=== PATIENT | female | born 1955 | race Caucasian/White ===

== ENCOUNTER 2017-04-14 06:40 | Day surgery (SDC) | payer OTHER ==
[~2017-04-14] VITALS: Ht 162.6 cm; Wt 61.2 kg
[~2017-04-14 06:40] MED LIST: BUPROPION XL150 MG PO; CIPROFLOXACIN500 MG PO; DIAZEPAM5 MG PO; GERITOL COMPLE1 EACH PO; LORAZEPAM1 MG PO; LORAZEPAM2 MG PO; METRONIDAZOLE250 MG PO; WELLBUTRIN SR150 MG PO
[2017-04-14] MEDS ORDERED: NEOMYCIN SULFA500 MG PO (06:54)
--- NOTE | 2017-04-14 08:36 | NUR ---
PT SEEMS TO BE RESTING COMFORTABLY IN BED, POLITE, SHORT ANSWERS. CAREGIVER BY PT'S SIDE. BOTH SEEMED TO BE INFORMED, DENIED ANY NEED. DECLINED PRAYER-"HER DAD HAS GIVEN HER A BLESSING ALREADY".
--- NOTE | 2017-04-14 09:47 | NUR ---
PT ALERT, ORIENTED AND VERY FRUSTRATED. SHE DISCOVERED IN HER WORDS THAT SHE WILL HAVE ANOTHER PROCEDURE TO REMOVE POLYUPS FOLLOWING THE REMOVAL OF THE TUMOR TODAY. WHAT SEMED TO FRUSTRATE HER WAS THE FINANCIAL LOSS SHE WOULD INCURR FROM LOST WORK TIME. SHE NEEDED TO VENT, I LET HER. RIGHT AFTER SHE STATED THAT SHE "JUST NEEDED TO LET IT GO". PT REQUESTED PRAYER, AND WE BOTH AGREED WE NEEDED HER HEALTHY. WILL FOLLOW NEEDED
--- NOTE | 2017-04-14 10:53 | NUR ---
has been up to br x2. concerned with wait. has been updated on delay...surgery ahead of her taking longer than expected. gave her glycerin swab for mouth and gave preop meds. she called to inform him of delay. settled in watching [employer] movies and is ok with wait.
--- NOTE | 2017-04-14 12:11 | NUR ---
UP TO BR PRIOR TO OR.
--- NOTE | 2017-04-14 13:30 | NUR ---
04/14/17 1330 Aydee Major 1325-PATIENT ARRIVED TO PACU ON 6L MASK O2 SAT 100% PATIENT REACTIVE OPENS EYES. GEL FOAM TO RECTUM. PATIENT DROWSY FALLS BACK ASLEEP. SR.
[2017-04-14] MEDS ORDERED: HYDROCODON-ACE1 EA10 PO (13:44)
[2017-04-14] MEDS ORDERED: IBUPROFEN600 MG PO (13:44)
[2017-04-14] MEDS ORDERED: MAPAP325 MG PO (13:44)
--- NOTE | 2017-04-14 14:56 | NUR ---
1444 tompkins cath removed. pt adamant she needs to void. unable to. amb well. denies dizzines,nausea or pain.
--- NOTE | 2017-04-14 15:21 | NUR ---
amb to br voids 30ml instructed she will have to vois more to go home.
--- NOTE | 2017-04-20 01:42 | OR ---
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 PROCEDURE: Exam under anesthesia. Transanal excision of villous tumor of rectum. Rigid proctoscopy. SURGEON: Himanshu Duenas MD. ANESTHESIA: General endotracheal ( Marcell Hernandez CRNA) POSITION: On bed, prone janet-knife. INDICATION: This 61-year-old white woman is a patient of Dr. Burrell. She was noted to have diarrhea and rectal bleeding. She underwent colonoscopy by me on March 18, 2017. She is found to have relatively large sessile polyps throughout the colon. Three of which were exci sed with mucosal lift technique. A very large villous adenoma appearing lesion was noted in the rectum, which was completely unable to be excised by endoscopic technique. She did suffer a post polypectomy syndrome within 24 hours of polypectomy and polyp in the left upper abdomen (splenic flexure) which was managed conservatively with antibiotics and dietary changes. The CT scan at that time showed edema in the area but no free air, particularly throughout the abdomen. She has recovered fully from that. A pelvic CT scan was performed to better characterize lesion of the rectum. It appears to be confined to the mucosa and is in a left lateral and anterior aspect of the rectum itself. She is admitted at this time to undergo transanal excision of a large r ectal villous tumor. Understand the risks of bleeding, infection, need for additional treatment and other unforeseen complications related to its excision. Understand that she wished to proceed. FINDINGS: In the prone janet-knife position was optimal to allo w for excision. The base of the polyp was approximately 3 to 4 cm. The fluffy soft villous portion of the neoplasm was about 6 cm in diameter. Excision was undertaken without extending the incision to the Electronically Signed By: HIMANSHU DUENAS MD 04/20/17 0142 PATIENT NAME: MITZY BARILLAS OPERATIVE REPORT DATE OF : 53 PHYSICIAN: HIMANSHU DUENAS MD REPORT #: [id number] REPORT IS CONFIDENTIAL AND NOT TO BE RELEASED WITHOUT AUTHORIZATION [facility] [address], [place] [address] Signed perirectal fat per se, given the nature of the les ion itself. Closure was accomplished without problem. DESCRIPTION OF PROCEDURE: The patient was brought to the operating room, given a general endotracheal anesthetic. She was placed in a prone janet-knife position after Paul catheter was placed. The buttock s were taped apart. A prone janet-knife position was maintained. The perianal area was clipped and prepared with Betadine solution. Rigid proctoscopy was undertaken first. Proctoscopy was taken to approximately 16 cm on the rigid proctoscope. Aspiration of liquid stool type material was undertaken. The villous lesion itself was located in the left anterior aspect of the rectum, was very friable and easily made to bleed as would be expected. Once rigid proctoscopy and cleansing of the rectum and rectosigmoid was accomplished, digital examination was undertaken demonstrating the central portion of the lesion to be approximately 9 cm from the anal verge. An anal retractor was placed which allowed b gladys characterization of the lesion. Using a Butts clamps, the bulk of the adenoma was grasped and gently brought externally where it was nearly able to be withdrawn from the anal canal with good relaxation by Anesthesia. The mucosa cephalad to the b ase of the lesion was secured with a 3-0 silk suture. Sequential application of 3-0 silk suture around the base of the lesion a cm from its edge was undertaken. This included anteriorly. Once these areas were fully secured, electrocautery was used to exci se the villous tumor certainly full-thickness to the mucosa but not penetrating into the rectal fat proper. This was excised completely with special care taken anteriorly so as to avoid entry into the posterior vaginal canal. Once excised fully, photograp hs were taken of the lesion. Irrigation was undertaken and the mucosal defect was reapproximated with interrupted 3-0 silk sutures. This was relatively long and laborious given the usual issues related to rectal mucosal redundancy that was accomplished fu y. Once completed further examination and irrigation of the rectum showed mucosal defect to be well-approximated. A Gel-Foam was rolled and bacitracin applied to it and it was insinuated into the low rectum. The patient was returned to the supine position, ultimately extubated and transported to recovery in good condition having suffered no known complications. BLOOD LOSS: Relatively minimal. Electronically Signed By: HIMANSHU DUENAS MD 04/20/17 0142 PATIENT NAME: MITZY BARILLAS OPERATIVE REPORT DATE OF : 53 PHYSICIAN: HIMANSHU DUENAS MD REPORT #: [id number] REPORT IS CONFIDENTIAL AND NOT TO BE RELEASED WITHOUT AUTHORIZATION [address] [address] Signed MD SO Evans/Modl /[id number] cc: Isaias Burrell MD Electronically Signed By: HIMANSHU DUENAS MD 04/20/17 0142 PATIENT NAME: MITZY BARILLAS OPERATIVE REPORT DATE OF : 53 PHYSICIAN: HIMANSHU DUENAS MD REPORT #: [id number] REPORT IS CONFIDENTIAL AND NOT TO BE RELEASED WITHOUT AUTHORIZATION
== END 2017-04-14 16:40 | disposition home or self-care (01) ==
LOC: DS 06:40
PROVIDERS: Surgery
PROC: 0DJD8ZZ Inspection of Lower Intestinal Tract, Via Natural or Artificial Opening Endoscopic (ICD-10-PCS; principal; 2017-04-14 09:15)
PROC: 0DBP0ZZ Excision of Rectum, Open Approach (ICD-10-PCS; principal; 2017-04-14 09:15)
DX: D12.8 Benign neoplasm of rectum (principal); K57.30 Diverticulosis of large intestine without perforation or abscess without bleeding; Z90.89 Acquired absence of other organs; Z98.890 Other specified postprocedural states; Z87.891 Personal history of nicotine dependence
CPT/HCPCS: 00902; J0330; J0694; J1644; J2250; J2405; J2704; J3010; J7120

== ENCOUNTER 2018-10-06 10:43 | Day surgery (SDC) | payer BC, OTHER ==
[~2018-10-06] VITALS: Ht 162.6 cm; Wt 64.0 kg
[~2018-10-06 10:43] MED LIST changes: +HYDROCODON-ACE1 EA10 PO; +IBUPROFEN600 MG PO; +MAPAP325 MG PO; +NEOMYCIN SULFA500 MG PO
[2018-10-06] MEDS ORDERED: FLUOXETINE HCL10 MG PO (11:06)
--- NOTE | 2018-10-06 14:40 | NUR ---
10/06/18 1440 Meka King 1423- PT ARRIVES TO PACU FROM ENDO ROOM ON 2 L O2 VIA NC OXYGEN SATS 99%. PT REACTIVE TO VERBAL STIMULUS AND FOLLOWS COMMANDS APPROPRIATELY. 1425- PT TITRATED TO RA. SATS >90%. PT ENC TO PASS GAS AND IS ABLE TO DO SO. PT DENIES PAIN/NAUSEA. 1430- PT SITTING UP IN BED TALKING TO RN. PT DENIES DIZZINESS/NAUSEA. RA [id number]%. 1435- PT'S AT BEDSIDE. PT SITTING UP IN BED WITH RA SATS 100%. PT GETTING DRESSED. PT SIPS WATER AND TOLERATES.
--- NOTE | 2018-10-06 23:14 | OR ---
[facility] [address] [place], [place] [address] Signed DATE OF OPERATION: 10/06/2018 SURGEON: Himanshu Duenas MD PREOPERATIVE DIAGNOSIS: History of large dysplastic rectal polyp, status post transanal excision in 2017. POSTOPERATIVE DIAGNOSES: 1. Two new flat polyps (cecal area and distal ascending colon). 2. Sigmoid diverticulosis. 3. No evidence of recurrent rectal neoplasm. PROCEDURE: 1. Total colonoscopy to cecum. 2. Mucosal lift technique with Endomark tattoo and hot snare polypectomy (x2). ANESTHESIA: Intravenous sedation, fentanyl 125 mcg, Versed 9 mg. INDICATION: This is a 62-year-old white woman, who is a patient of Dr. Burrell, underwent colonoscopy and subsequently transanal excision of a dysplastic rectal polyp in 2017 by me. She is here for surveillance colonoscopy. She understands the risks of bleeding, infection, and perforation, and wished to proceed. FINDINGS: The prep was excellent. Complete colonoscopy was undertaken to the cecum. There was a flat sessile polyp, very subtle in its appearance, clearly troublesome based on narrow band imaging in the proximal ascending colon just distal to the cecum. Additionally, a similar such polyp was noted in the distal ascending colon. Both were excised with mucosal lift technique using Endo Marcell tattoo dye and hot snare polypectomy. The sigmoid had diverticulosis. The area of scar from the rectum appeared to be completely healed. DESCRIPTION OF PROCEDURE: The patient was brought to the endoscopy suite and placed in lateral decubitus position, given intravenous sedation to the point of slurred speech and nystagmus. Digital rectal examination was normal. An Olympus video colonoscope was passed in the rectum and manipulated throughout the Electronically Signed By: HIMANSHU DUENAS MD 10/06/18 2314 PATIENT NAME: MITZY BARILLAS OPERATIVE REPORT DATE OF : 53 REPORT #: [id number] PHYSICIAN: HIMANSHU DUENAS MD PCP: RYAN BURRELL MD REPORT IS CONFIDENTIAL AND NOT TO BE RELEASED WITHOUT AUTHORIZATION [facility] [address] [place], [place] [address] Signed colon. Diverticulosis was noted in the sigmoid. The scope was ultimately passed to the cecum itself. The ileocecal valve and appendiceal orifice were normal. The scope was withdrawn and in the proximal ascending colon (distal cecum) was a subtle flat polyp. Narrow band imaging confirmed it clearly being worrisome type lesion. The lesion was excised completely with mucosal lift technique using spot tattoo needle technique for mucosal lift and hot snare polypectomy. Additional morcellation polypectomy and limited amount of additional electrocautery were used for hemostasis. The specimen was passed for pathology. Scope was withdrawn from that point and the hepatic flexure of the distal ascending colon was a similar such polyp excised in the exact same way. Further withdrawal of scope showed no other polyps, but did show diverticulosis of the left colon and sigmoid. Retroflexed view was normal. The area of prior excision in the rectum was clearly visualized and scarred down, but with no sign of recurrence. The scope was removed. The patient was taken to recovery room in good condition. CONCLUDING DIAGNOSES: 1. Flat polyps x2. Both excised completely. 2. Diverticulosis. PLAN: Recommend repeat colonoscopy in 1 year based on current findings, sooner if symptoms should develop. She will return to the ongoing care of Dr. raul Burrell. MD SO Evans/MODL /[id number] cc: Dr. Burrell Copies: ~ Electronically Signed By: HIMANSHU DUENAS MD 10/06/18 2314 PATIENT NAME: MITZY BARILLAS OPERATIVE REPORT DATE OF : 53 REPORT #: [id number] PHYSICIAN: HIMANSHU DUENAS MD PCP: RYAN BURRELL MD REPORT IS CONFIDENTIAL AND NOT TO BE RELEASED WITHOUT AUTHORIZATION
== END 2018-10-06 14:53 | disposition home or self-care (01) ==
LOC: OPS 10:43 → DS 10:43 → OPS 11:45
PROVIDERS: Surgery
PROC: 3E0H8GC Introduction of Other Therapeutic Substance into Lower GI, Via Natural or Artificial Opening Endoscopic (ICD-10-PCS; 2018-10-06)
PROC: 0DBK8ZZ Excision of Ascending Colon, Via Natural or Artificial Opening Endoscopic (ICD-10-PCS; principal; 2018-10-06 11:45)
DX: Z12.11 Encounter for screening for malignant neoplasm of colon (principal); D12.2 Benign neoplasm of ascending colon; K57.30 Diverticulosis of large intestine without perforation or abscess without bleeding; F32.9 Major depressive disorder, single episode, unspecified; F41.1 Generalized anxiety disorder; Z86.010 Personal history of colon polyps; Z88.5 Allergy status to narcotic agent; Z98.890 Other specified postprocedural states; Z87.891 Personal history of nicotine dependence
CPT/HCPCS: 99153; G0500; J2250; J3010; J7120

== ENCOUNTER 2019-09-21 05:55 | Day surgery (SDC) | payer BC ==
[~2019-09-21] VITALS: Ht 162.6 cm; Wt 65.3 kg
[~2019-09-21 05:55] MED LIST changes: +FLUOXETINE HCL10 MG PO
--- NOTE | 2019-09-21 08:47 | NUR ---
09/21/19 0847 Esha Crotez 0852 PATIENT ARRIVES TO PACU SLEEPING, AWAKENS WITH VERBAL STIMULI. SLOW TO ANSWER QUESTIONS, THEN BACK TO SLEEP. RESP EVEN AND UNLABORED, ROOM AIR SATS >93%.
--- NOTE | 2019-09-26 21:30 | OR ---
[facility] [address] [place], [place] [address] Signed DATE OF OPERATION: 09/21/2019 SURGEON: Himanshu Duenas MD PREOPERATIVE DIAGNOSES: History of flat adenomatous polyps October 06, 2018, status post mucosal lift procedure, subsequent excision and post polypectomy syndrome. POSTOPERATIVE DIAGNOSIS: Polyps x3 including flat polyp of cecum. PROCEDURES PERFORMED: 1. Total colonoscopy to cecum. 2. Endoscopic mucosal resection by lift technique, cecal flat polyp. 3. Cold morcellation polypectomy x2 (60 cm and right colon). ANESTHESIA: Intravenous sedation, fentanyl 200 mcg, Versed 12 mg. INDICATION: This 63-year-old white woman is a patient of Dr. Burrell and underwent colonoscopy by de in October of 2018, at which time, she was found to have a flat polyp of the cecum, which was excised with mucosal lift technique including electrocautery. There is more than one lesion. The patient has possible family history of colon cancer in an aunt. She did suffer a post polypectomy syndrome following the procedure requiring antibiotics and IV fluids, and her symptoms resolved. She is here for surveillance colonoscopy. She understands the risks of bleeding, infection, perforation, and so forth related to repeat colonoscopy and wished to proceed. FINDINGS: The prep was excellent. Complete colonoscopy was undertaken of the cecum. There was a flat lesion of the cecum, not associated with any Endo Marcell tattoo as there had likely been slightly distal previously. This lesion was excised with mucosal lift technique (Endoscopic mucosal resection) requiring both snare and morcellation techniques. Hemoclips were applied. There were 2 other polyps, 1 at the right colon, which was excised with cold morcellation technique and another on a mucosal fold at 60 cm. There were no other findings of concern. DESCRIPTION OF PROCEDURE: The patient was brought to the endoscopy suite and placed in lateral decubitus position, Electronically Signed By: HIMANSHU DUENAS MD 09/26/19 5883 PATIENT NAME: MITZY BARILLAS OPERATIVE REPORT DATE OF : 53 REPORT #: [id number] PHYSICIAN: HIMANSHU DUENAS MD PCP: RYAN BURRELL MD REPORT IS CONFIDENTIAL AND NOT TO BE RELEASED WITHOUT AUTHORIZATION [facility] [address] [place], [place] [address] Signed given intravenous sedation to the point of slurred speech and nystagmus with full cardiopulmonary monitoring. Additional sedation was given as needed throughout the procedure. Digital rectal examination was found to be normal. An Olympus video colonoscope was passed in the rectum and manipulated throughout the colon. At approximately the mid right colon, a small sessile polyp was noted and this was excised with cold morcellation technique, measured less than 5 mm. The scope was advanced into the cecum where a flat polyp was identified. An endomucosal resection was deemed most appropriate. The central portion of the lesion was punctured with the sclerotherapy needle and spot endoscopic tattoo dye injected allowing for mucosal lift. Mindful of prior post polypectomy syndrome from before cold snare polypectomy was undertaken. This did not draw through the polyp definitively. Using cold morcellation technique, the polypoid tissue was excised. A small amount of bleeding was noted. This ultimately settled down, but 2 Endoclips were used to additionally secure hemostasis and provide some mucosal apposition. The scope was withdrawn and then an area directly across from the ileocecal valve was noted to have Endo Marcell tattoo from the past. There was no sign of recurrent or persistent polyp. I suspect this was the area in the mucosal resection previously. The scope was then withdrawn further and approximately a 60 cm from the anal verge, was a very subtle polyp along the mucosal fold. This was excised with cold morcellation technique. Further withdrawal of scope showed no other findings of concern. She did have some internal hemorrhoids, however. The scope was removed. The patient was taken to recovery room in good condition. CONCLUDING DIAGNOSES: New polyps. No sign of recurrent polyp at previous resection site. PLAN: Recommend repeat colonoscopy in 2 years sooner if symptoms should occur. She will return to the ongoing care of Dr. Burrell otherwise. MD SO Evans/SESARL /[id number] cc: Ryan Burrell MD Electronically Signed By: HIMANSHU DUENAS MD 09/26/19 2130 PATIENT NAME: MITZY BARILLAS OPERATIVE REPORT DATE OF : 53 REPORT #: [id number] PHYSICIAN: HIMANSHU DUENAS MD PCP: RYAN BURRELL MD REPORT IS CONFIDENTIAL AND NOT TO BE RELEASED WITHOUT AUTHORIZATION [address] [address] Signed Copies: RYAN BURRELL MD ~ Electronically Signed By: HIMANSHU DUENAS MD 09/26/190 PATIENT NAME: MITZY BARILLAS OPERATIVE REPORT DATE OF : 53 REPORT #: [id number] PHYSICIAN: HIMANSHU DUENAS MD PCP: RYAN BURRELL MD REPORT IS CONFIDENTIAL AND NOT TO BE RELEASED WITHOUT AUTHORIZATION
== END 2019-09-21 09:20 | disposition home or self-care (01) ==
LOC: OPS 05:55 → DS 05:55 → OPS 06:45
PROVIDERS: Surgery
PROC: 3E0H8GC Introduction of Other Therapeutic Substance into Lower GI, Via Natural or Artificial Opening Endoscopic (ICD-10-PCS; 2019-09-21)
PROC: 0DBF8ZZ Excision of Right Large Intestine, Via Natural or Artificial Opening Endoscopic (ICD-10-PCS; 2019-09-21)
PROC: 0DBE8ZZ Excision of Large Intestine, Via Natural or Artificial Opening Endoscopic (ICD-10-PCS; 2019-09-21)
PROC: 0DBH8ZZ Excision of Cecum, Via Natural or Artificial Opening Endoscopic (ICD-10-PCS; principal; 2019-09-21 06:45)
DX: D12.0 Benign neoplasm of cecum (principal); D12.2 Benign neoplasm of ascending colon; D12.6 Benign neoplasm of colon, unspecified; F32.9 Major depressive disorder, single episode, unspecified; G89.21 Chronic pain due to trauma; Z86.010 Personal history of colon polyps; Z98.890 Other specified postprocedural states; Z88.5 Allergy status to narcotic agent; Z91.013 Allergy to seafood; Z80.0 Family history of malignant neoplasm of digestive organs; Z87.891 Personal history of nicotine dependence
CPT/HCPCS: 99153; G0500; J2250; J3010; J7121

== ENCOUNTER 2021-07-07 06:18 | Day surgery (SDC) | payer MEDICARE ==
[~2021-07-07] VITALS: Ht 162.6 cm; Wt 62.1 kg
[~2021-07-07 06:18] MED LIST changes: +ARICEPT5 MG PO; +HYDROCODON-ACE1 EAC8 PO; +MOVE FREE ULTR1 EAC2 PO; +NAMENDA10 MG PO; +STOOL SOFTENER100 MG PO
--- NOTE | 2021-07-07 08:43 | NUR ---
07/07/21 0843 Aydee Major 0168-PATIENT ARRIVED TO PACU ON 3L NC PLACED ON 2L RR EVEN. PATIENT SLEEPING LAYING ON RIGHT SIDE REACTIVE TO VERBAL STIMULI OPENING EYES AND TALKING. PATIENT NOT FOLLOWING COMMANDS AT THIS TIME. PATIENT DOES HAVE ALZHEIMERS. PATIENT VERY DROWSY BACK TO SLEEP. ABDOMEN SOFT IVF INFUSING.
--- NOTE | 2021-07-07 09:43 | NUR ---
PT ALERT, ORIENTED AND HERE FOR ROUTINE SCOPE. ALL QUESTIONS ASKED ANSWERED, IS AT WORK AND WILL PICKUP PT WHEN READY FOR DC. PT VERY HUNGARY, WILL BE READY TO EAT SHE SAID. PT REQUESTED PRAYER, WILL FOLLOW
--- NOTE | 2021-07-07 09:57 | NUR ---
0945: PATIENT BACK IN DAY SURGERY ROOM DUE TO DROWSINESS. PATIENT AWAKE AND TALKING AT THE MOMENT BUT STATES SHE FEELS SLEEPY AND ISN'T QUITE READY TO GET UP AND GO HOME YET. DENIES PAIN. DENIES NAUSEA. VS CHECKED. IV SALINE LOCKED. AT BEDSIDE. GIVEN WARM BLANKET. CALL LIGHT WITHIN REACH.
--- NOTE | 2021-07-07 11:28 | NUR ---
1020: PATIENT ASSISTED OOB AND TO THE BATHROOM. GAIT STEADY TO AND FROM BATHROOM. PATIENT GETTING DRESSED WITH HELP FROM . 1033: DISCHARGE INSTRUCTIONS GIVEN TO PATIENT AND . IV DC'D WNL. TIP INTACT. DRESSING APPLIED. PATIENT DISCHARGED TO HOME WITH VIA WHEELCHAIR.
--- NOTE | 2021-07-08 10:06 | OR ---
[facility] [address] [place], [place] [address] Signed DATE OF OPERATION: 07/07/2021 SURGEON: Bertha Santoyo MD PREOPERATIVE DIAGNOSES: 1. Colonoscopy x2 2018. 2. Personal history of colonic polyps 2019. POSTOPERATIVE DIAGNOSES: 1. Ntzf-rd-nnidyrxc pandiverticulosis. 2. 8 mm cecal polyp/old tattoo. 3. Three and 5 mm polyps at base of ileocecal valve. 4. A 10 mm polyp distal right colon/old tattoo. 5. A 10 mm polyps x2 at 90 cm/new tattoo (snare). 6. 5 mm polyps x2 at 86 cm. PROCEDURE: Colonoscopy, snare polypectomy, hot biopsy, injection of tattoo, and clipping x3 at 90 cm. INDICATIONS: Juliana is a 65-year-old female, who had come to my office recently with 2 issues. First, we took care of her right breast cancer and she is waiting to see the oncologist. In addition, she had [address] Leggett back in 2019. The 1st one was in October, the last one in September of that same year. She had several flat adenomatous polyps removed. Therefore, the need to return in 1 year. She also has some level of dementia and her has to help her significantly. Overall, she is doing well. In the office, she told me she really had no lower GI complaints. She did well with Versed and fentanyl on her previous colonoscopies. There is no family history of colon cancer or polyps. In the office, I gave Juliana and her , Naresh pamphlets on colonoscopy. We reviewed the nature of that test. There is risk including, but not limited to gas bloating, crampy abdominal pain, bleeding, perforation requiring surgery, and missed diagnosis. We also discussed the need for IV conscious sedation. She had expressed understanding and wished to proceed. PROCEDURE NOTE: Juliana was taken into our endoscopy suite and placed in the left lateral decubitus position. She was given 7 mg of Versed and 150 mcg of fentanyl to cover the case. A digital rectal exam was performed and this was unremarkable. The adult colonoscope was introduced and advanced all around into the cecum under direct visualization of the Electronically Signed By: BERTHA SANTOYO MD 07/08/21 1006 PATIENT NAME: JULIANA BARILLAS OPERATIVE REPORT DATE OF : 53 REPORT #: [id number] PHYSICIAN: BERTHA SANTOYO MD PCP: RYAN VICENTE MD REPORT IS CONFIDENTIAL AND NOT TO BE RELEASED WITHOUT AUTHORIZATION [facility] [address] [place], [place] [address] Signed camera without difficulty. She had a few areas of particulate stool matter that were too thick to suction out through the scope. However, her prep overall was good. She might consider some additional prep in the future. We could easily see a large tattoo in the cecum. We could also see the ileal cecal valve and the appendiceal orifice. We found an 8 mm polyp in the cecum along with 2 small polyps at the base of the ileocecal valve. They were all removed with the help of hot biopsy forceps. Upon withdrawal of the scope, we did see diverticula in the right and left colon. They were xghyhcm-fq-acnxlxmi in size and minimal to moderate in number and scattered about. In the distal right colon next to her old tattoo, there was another 10 mm polyp. It was removed with the help of hot biopsy forceps as well. As the scope was withdrawn further, we found two 10 mm sessile polyps at 90 cm. They were removed with the help of hot biopsy forceps and snare. We initially placed 2 large clips onto the 1st of those polyps and they both came off with withdrawal of the wire. We had to switch to our regular-sized clips in order to place two clips on that polyp. After removing the 2nd polyp, there was a little bleeding, so we placed a single clip on that as well. Therefore, three clips were intact in the mucosa. The other 2 were free in the colon. We then placed a small tattoo next to those 2 polyps. We withdrew the scope a little further and we ran into 5 mm polyps x2 at 86 cm. They were removed with the help of hot biopsy forceps. We did not see any other polyps down the left colon or sigmoid colon. The rectum was unremarkable. It took a few minutes to retroflex the scope since her rectum was not particularly long. We did not see any additional pathology above the anal canal. After this, the gas was suctioned out and colonoscope removed. Juliana tolerated the procedure quite well. RECOMMENDATIONS: I will see Juliana back in my office in 7 to 14 days to follow up her colonoscopy results. I will make her aware of the clips and the use of the snare. She would be caceres to consider a followup colonoscopy within another year. She should use a double bowel prep in the future. Bertha Santoyo MD ALB/MODL /[id number] cc: Radha Rogers MD Electronically Signed By: BERTHA SANTOYO MD 07/08/21 1006 PATIENT NAME: JULIANA BARILLAS OPERATIVE REPORT DATE OF : 53 REPORT #: [id number] PHYSICIAN: BERTHA SANTOYO MD PCP: RYAN VICENTE MD REPORT IS CONFIDENTIAL AND NOT TO BE RELEASED WITHOUT AUTHORIZATION [facility] [address] [place], [place] [address] Signed Chart Filed Incomplete MD Bertha Jenkins MD Copies: RADHA ROGERS MD CHART FILED INCOMPLETE RYAN VICENTE MD, ANDREW L MD ~ Electronically Signed By: BERTHA SANTOYO MD 07/08/21 1006 PATIENT NAME: JULIANA BARILLAS OPERATIVE REPORT DATE OF : 53 REPORT #: [id number] PHYSICIAN: BERTHA SANTOYO MD PCP: RYAN VICENTE MD REPORT IS CONFIDENTIAL AND NOT TO BE RELEASED WITHOUT AUTHORIZATION
--- NOTE | 2021-07-09 10:11 | PATH ---
[facility] [address], [place] [address] Signed SPECIMEN(S): A CECUM POLYP' SPECIMEN(S): B ILEOCECAL VALVE POLYP SPECIMEN(S): C DISTAL RIGHT COLON POLYP SPECIMEN(S): D COLON POLYP AT 90 CM X2 SPECIMEN(S): E COLON POLYP AT 86 CM X2 SPECIMEN SOURCE: A. CECUM POLYP' B. ILEOCECAL VALVE POLYP C. DISTAL RIGHT COLON POLYP D. COLON POLYP AT 90 CM X2 E. COLON POLYP AT 86 CM X2 CLINICAL HISTORY: Personal history of colon polyps 2019 / colon polyps; diverticulosis. MICROSCOPIC DESCRIPTION: Histologic sections of all submitted blocks are examined by light microscopy. These findings, together with the gross examination, support the pathologic diagnosis. FINAL PATHOLOGIC DIAGNOSIS: A. Colon, cecum, polypectomy: - Multiple fragments of tubular adenoma, three fragments. - One fragment demonstrates a benign intramucosal lymphoid nodule. - An additional fragment of colonic epithelium is within normal limits. - There is no evidence of high-grade dysplasia or malignancy. B. Ileocecal valve, polypectomy: - Multiple fragments of tubular adenoma. - There is no evidence of high-grade dysplasia or malignancy. C. Colon, distal right, polypectomy: - Tubular adenoma, one fragment. - Additional fragments of colonic epithelium are within normal limits. - There is no evidence of high-grade dysplasia or malignancy. D. Colon, 90 cm, polypectomy: - Tubular adenoma. - There is no evidence of high-grade dysplasia or malignancy. E. Colon, 86 cm, polypectomy: - Multiple fragments of tubular adenoma. - There is no evidence of high-grade dysplasia or malignancy. TWK:caw:C2NR PATIENT NAME: JULIANA BARILLAS PATHOLOGY DATE OF : 53 REPORT #: [id number] PHYSICIAN: NORMAN LUNA PCP: RYAN VICENTE MD REPORT IS CONFIDENTIAL AND NOT TO BE RELEASED WITHOUT AUTHORIZATION [facility] [address], [place] [address] Signed GROSS DESCRIPTION: Five specimens are received in five containers, labeled "AW." A. The specimen, labeled "AW, cecum polyp," is received in formalin and consists of five toure soft tissue fragment(s) that measure 0.1-0.2 cm in greatest dimension. The specimen is entirely submitted in cassette (A1). B. The specimen, labeled "AW, ileocecal wall polyp," is received in formalin and consists of three toure soft tissue fragment(s) that measure 0.1-0.2 cm in greatest dimension. The specimen is entirely submitted in cassette (B1). C. The specimen, labeled "AW, distal right colon polyp," is received in formalin and consists of three toure soft tissue fragment(s) that measure 0.1-0.2 cm in greatest dimension. The specimen is entirely submitted in cassette (C1). D. The specimen, labeled "AW, colon polyp 90 cm," is received in formalin and consists of one toure soft tissue fragment(s) that measure 1.2 cm in greatest dimension. The specimen is trisected and entirely submitted in cassette (D1). E. The specimen, labeled "AW, colon polyp at 86 cm," is received in formalin and consists of four toure soft tissue fragment(s) that measure 0.1-0.2 cm in greatest dimension. The specimen is entirely submitted in cassette (E1). JS (under the direct supervision of a pathologist) The Gross Description was prepared using a voice recognition system. The report was reviewed for accuracy; however, sound-alike word errors, addition and/or deletions may occur. If there is any question about this report, please contact Client Services. PERFORMING LABORATORY: The technical component was performed by [facility] [address] (Gambreler: Juliana Galarza MD; CLIA# [id number]). Professional interpretation was performed by [facility], [address] [place], [place] [address] (CLIA# [id number]). Diagnostician: Dillon Carr MD Pathologist Electronically Signed 07/09/2021 Copies: PATIENT NAME: JULIANA BARILLAS PATHOLOGY DATE OF : 53 REPORT #: [id number] PHYSICIAN: NORMAN PATHOLOGY PCP: RYAN VICENTE MD REPORT IS CONFIDENTIAL AND NOT TO BE RELEASED WITHOUT AUTHORIZATION [facility] [address] [facility] [place], [place] [address] Signed ~ PATIENT NAME: JULIANA BARILLAS PATHOLOGY DATE OF : 53 REPORT #: [id number] PHYSICIAN: NORMAN PATHOLOGY PCP: RYAN VICENTE MD REPORT IS CONFIDENTIAL AND NOT TO BE RELEASED WITHOUT AUTHORIZATION
== END 2021-07-07 10:33 | disposition home or self-care (01) ==
LOC: OPS 06:18 → DS 06:18 → OPS 06:45 → DS 06:45 → OPS 07:30
PROVIDERS: ATTEND Colon & Rectal Surgery
PROC: 0DBC8ZX Excision of Ileocecal Valve, Via Natural or Artificial Opening Endoscopic, Diagnostic (ICD-10-PCS; 2021-07-07)
PROC: 0DBH8ZX Excision of Cecum, Via Natural or Artificial Opening Endoscopic, Diagnostic (ICD-10-PCS; 2021-07-07)
PROC: 0DBE8ZX Excision of Large Intestine, Via Natural or Artificial Opening Endoscopic, Diagnostic (ICD-10-PCS; 2021-07-07)
PROC: 3E0H8KZ Introduction of Other Diagnostic Substance into Lower GI, Via Natural or Artificial Opening Endoscopic (ICD-10-PCS; 2021-07-07)
PROC: 0DBK8ZX Excision of Ascending Colon, Via Natural or Artificial Opening Endoscopic, Diagnostic (ICD-10-PCS; principal; 2021-07-07 07:30)
DX: D12.0 Benign neoplasm of cecum (principal); D12.2 Benign neoplasm of ascending colon; K57.30 Diverticulosis of large intestine without perforation or abscess without bleeding; C50.811 Malignant neoplasm of overlapping sites of right female breast; Z17.0 Estrogen receptor positive status [ER+]; G30.9 Alzheimer's disease, unspecified; F02.80 Dementia in other diseases classified elsewhere, unspecified severity, without behavioral disturbance, psychotic disturbance, mood disturbance, and anxiety; F10.21 Alcohol dependence, in remission; Z87.891 Personal history of nicotine dependence
CPT/HCPCS: 99153; G0500; J2250; J3010; J7121

== ENCOUNTER 2021-12-10 06:54 | Day surgery (SDC) | payer MEDICARE ==
[~2021-12-10] VITALS: Ht 162.6 cm; Wt 59.0 kg
[~2021-12-10 06:54] MED LIST changes: +FLUOXETINE HCL40 MG PO; +VITAMIN D310 MC4
[2021-12-10] MEDS ORDERED: OMEPRAZOLE20 MG PO (07:23)
--- NOTE | 2021-12-10 07:32 | NUR ---
0700 pt has dentia per . pt did answer a few questions verified by .
--- NOTE | 2021-12-10 09:22 | NUR ---
12/10/21 0922 Shanika Leung 0919- PT TO PACU IN LL POSITION. EYES CLOSED. PT REACTS TO VERBAL AND TACTILE STIMULI BUT FALLS QUICKLY BACK TO SLEEP. BREATHING EASY AND UNLABORED. SPO2 >95% ON ROOM AIR. PT PASSING GAS.
--- NOTE | 2021-12-10 10:24 | OR ---
[facility] [address] [place], [place] [address] Signed DATE OF OPERATION: 12/10/2021 SURGEON: Bertha Santoyo MD PREOPERATIVE DIAGNOSES: 1. Personal history of colonic polyps in 2019. 2. Tattoos in the cecum, distal right colon and 90 cm. 3. Pandiverticulosis. 4. Minimal hemorrhoids. 5. Intermittent chronic constipation. POSTOPERATIVE DIAGNOSES: 1. Mild to moderate pandiverticulosis. 2. A 7 mm sessile polyp, distal right colon/proximal hepatic flexure. 3. A 7 mm sessile polyp, distal right colon/tattoo. 4. A 7 mm sessile polyp at 90 cm/tattoo. 5. A 3 mm polyp at 16 cm/sigmoid colon. 6. A 3 mm polyp at 7 cm/rectum. 7. Minimal internal and external hemorrhoids. 8. Minimal melanosis coli. PROCEDURE: Colonoscopy with hot biopsy. ESTIMATED BLOOD LOSS: None. INDICATIONS: Juliana is a 66-year-old female, who comes for a followup colonoscopy. She underwent a colonoscopy in October of 2018 and again in September of [address] Leggett. She had multiple sessile tubular adenomatous polyps removed. There was a tattoo left in the cecum, which is actually at the base of the ileocecal valve. There was also a tattoo left in her distal right colon. She had done well with Versed and fentanyl. I helped her with a colonoscopy in July 2021. Again, she did well with Versed and fentanyl. Once again, she had tubular adenomatous polyps removed along with the right and left-sided diverticulosis. I had left a tattoo at [address] Leggett and myself had placed clips during her colonoscopies. Nevertheless, she did bleed and I had to take her back for repeat colonoscopy. There was no ongoing bleeding. She did well after that. She also has right breast cancer and she is undergoing radiation therapy with Dr. Paez. She will be undergoing endocrine therapy with Dr. Rogers following the Electronically Signed By: BERTHA SANTOYO MD 12/10/21 [facility] PATIENT NAME: JULIANA BARILLAS OPERATIVE REPORT DATE OF : 53 REPORT #: [id number] PHYSICIAN: BERTHA SANTOYO MD PCP: RYAN BURRELL MD REPORT IS CONFIDENTIAL AND NOT TO BE RELEASED WITHOUT AUTHORIZATION [facility] [address], [place] [address] Signed radiation therapy. In the meantime, she has no lower GI complaints. She does have intermittent chronic constipation. No family history of colon cancer or polyps. Because of her dementia, her always comes with her to the office visits. I reviewed within them the nature of colonoscopy. They know there is risk including, but not limited to gas bloating, crampy abdominal pain, bleeding, perforation requiring surgery, and missed diagnosis. They also recall the need for IV conscious sedation. Again, she always does well with Versed and fentanyl. They had expressed understanding and wished to proceed. PROCEDURE NOTE: Juliana was taken into our endoscopy suite and placed in the left lateral decubitus position. She was given a total of 7 mg of Versed and 175 mcg of fentanyl, which is slightly less than what she had before. Again, she did well. A digital rectal exam was performed. She has minimal external hemorrhoid tissue. She has good sphincter tone. The adult colonoscope was introduced and advanced into the cecum under direct visualization of the camera. It did take some extra sedation abdominal compression in order to advance the scope. She and her are quite excellent with her bowel prep. She always follows a low fiber diet for three days and does a double bowel prep. Consequently, she was quite clean. The scope was then slowly withdrawn. We could easily see the appendiceal orifice and the ileocecal valve. We can see the tattoo at the base of her ileocecal valve. The above-mentioned polyps were all removed with help of a hot biopsy forceps and completely cauterized and destroyed. We found her tattoo in the distal right colon and again the 3rd tattoo was back at 90 cm. She does have right and left-sided diverticula. They are moderate in size, few in number, and scattered about. The rectum itself had just one tiny polyp. Upon retroflexion of the scope, she has very minimal internal hemorrhoid tissue. We noted tiger striping throughout the colon consistent with mild melanosis coli. We therefore took a random biopsy in the colon for documentation. After this, the gas was suctioned out and the colonoscope removed. Juliana tolerated the procedure quite well. RECOMMENDATIONS: I will see Juliana back in my office in 7 to 14 days to review her results. She may consider somewhat shortened colonoscopy, follow up in one but not more than three years. Bertha Santoyo MD ALB/MODL /[id number] Electronically Signed By: BERTHA SANTOYO MD 12/10/21 1024 PATIENT NAME: JULIANA BARILLAS OPERATIVE REPORT DATE OF : 53 REPORT #: [id number] PHYSICIAN: BERTHA SANTOYO MD PCP: RYAN BURRELL MD REPORT IS CONFIDENTIAL AND NOT TO BE RELEASED WITHOUT AUTHORIZATION [address] [place] [address] Signed cc: MD Bertha Bobo, MD Ryan Burrell, MD Jose Paez MD, PH.D. Copies: RADHA ROGERS MD, ANDREW L MD HARRISON, RUSSELL BARR MD CHOE, JUNO ~ Electronically Signed By: BERTHA SANTOYO MD 12/10/21 1024 PATIENT NAME: JULIANA BARILLAS OPERATIVE REPORT DATE OF : 53 REPORT #: [id number] PHYSICIAN: BERTHA SANTOYO MD PCP: RYAN BURRELL MD REPORT IS CONFIDENTIAL AND NOT TO BE RELEASED WITHOUT AUTHORIZATION
--- NOTE | 2021-12-14 17:18 | PATH ---
[facility] [address] [place], [place] [address] Signed SPECIMEN(S): A ASCENDING/RIGHT COLON POLYP SPECIMEN(S): B ASCENDING/RIGHT COLON POLYP AT TATTOO SPECIMEN(S): C RANDOM BIOPSY FOR MELANOSIS COLI SPECIMEN(S): D POLYP AT 90 CM AT TATTOO SPECIMEN(S): E SIGMOID POLYP AT 16 CM SPECIMEN(S): F POLYP AT 7 CM SPECIMEN SOURCE: A. ASCENDING/RIGHT COLON POLYP B. ASCENDING/RIGHT COLON POLYP AT TATTOO C. RANDOM BIOPSY FOR MELANOSIS COLI D. POLYP AT 90 CM AT TATTOO E. SIGMOID POLYP AT 16 CM F. POLYP AT 7 CM CLINICAL HISTORY: Follow-up colonoscopy for polyps. For melanosis coli. FINAL PATHOLOGIC DIAGNOSIS: A. Colon, distal right, polyp, polypectomy: - Fragments of colonic mucosa with features suggestive of hyperplastic polyp. - Negative for dysplasia or malignancy. B. Colon, distal right, polyp at tattoo, polypectomy: - Fragments of severely cauterized colonic mucosa, cannot exclude dysplasia. - see Comment. C. Colon, random, biopsy: - Melanosis coli. - Negative for dysplasia or malignancy. D. Colon, polyp at 90 cm at tattoo, polyp, polypectomy: - Tubular adenoma. - Negative for high-grade dysplasia or malignancy. E. Colon, sigmoid, polyp at 16 cm, polypectomy: - Hyperplastic polyp. - Negative for dysplasia or malignancy. F. Colon, polyp at 7 cm, polypectomy: - Tubular adenoma. - Negative for high-grade dysplasia or malignancy. COMMENT: Regarding specimen B: The fragments of mucosa are severely cauterized which distorts histologic appearance and precludes histologic assessment. PATIENT NAME: JULIANA BARILLAS PATHOLOGY DATE OF : 53 REPORT #: [id number] PHYSICIAN: NORMAN PATHOLOGY PCP: RYAN VICENTE MD REPORT IS CONFIDENTIAL AND NOT TO BE RELEASED WITHOUT AUTHORIZATION [facility] [address] [place], [place] [address] Signed NAL:cml:C2NR MICROSCOPIC EXAMINATION: Histologic sections of all submitted blocks are examined by light microscopy. These findings, together with the gross examination, support the pathologic diagnosis. GROSS DESCRIPTION: 6 specimens are received in 6 containers labeled with "AW". A. The specimen, labeled "AW, #1, distal right colon polyp," and designated on the requisition "ascending/right polypectomy," is received in formalin and consists of two fragments of pink-toure tissue (0.3-0.4 cm in greatest dimension). The specimen is submitted entirely in cassette A1. B. The specimen, labeled "AW, #2, [facility]," and designated on the requisition "ascending/right polypectomy at [facility]," is received in formalin and consists of three fragments of toure tissue (0.1-0.2 cm in greatest dimension). The specimen is submitted entirely in cassette B1. C. The specimen, labeled "AW, 3, random biopsies melanosis coli," is received in formalin and consists of two fragments of pink-toure tissue (0.2-0.3 cm in greatest dimension). The specimen is submitted entirely in cassette C1. D. The specimen, labeled "AW, #4, polyp at 90 cm at [facility]," is received in formalin and consists of two fragments of pink-toure tissue (0.3 cm in greatest dimension). The specimen is submitted entirely in cassette D1. E. The specimen, labeled "AW, #5, polyp at 60 cm sigmoid colon," is received in formalin and consists of one fragment of pink-toure tissue (0.3 cm in greatest dimension). The specimen is submitted entirely in cassette E1. F. The specimen, labeled "AW, #6, polyp at 7 cm," is received in formalin and consists of one fragment of pink-toure tissue (0.4 cm in greatest dimension). The specimen is submitted entirely in cassette F1. AC (under the direct supervision of a pathologist) The Gross Description was prepared using a voice recognition system. The report was reviewed for accuracy; however, sound-alike word errors, addition and/or deletions may occur. If there is any question about this report, please contact Client Services. PATIENT NAME: JULIANA BARILLAS PATHOLOGY DATE OF : 53 REPORT #: [id number] PHYSICIAN: NORMAN LUNA PCP: RYAN VICENTE MD REPORT IS CONFIDENTIAL AND NOT TO BE RELEASED WITHOUT AUTHORIZATION [facility] [address] [place] [address] Signed PERFORMING LABORATORY: The technical component was performed by [facility], [address] [place] [id number] (Spareribs Trimmer: Juliana Galarza MD; CLIA# [id number]). Professional interpretation was performed by [facility], [facility], [address] [address] (CLIA# [id number]). Diagnostician: Marii Griffiths MD Pathologist Electronically Signed 12/14/2021 Copies: ~ PATIENT NAME: JULIANA BARILLAS PATHOLOGY DATE OF : 53 REPORT #: [id number] PHYSICIAN: NORMAN PATHOLOGY PCP: RYAN VICENTE MD REPORT IS CONFIDENTIAL AND NOT TO BE RELEASED WITHOUT AUTHORIZATION
== END 2021-12-10 10:20 | disposition home or self-care (01) ==
LOC: OPS 06:54 → DS 06:54 → OPS 08:15
PROVIDERS: ATTEND Colon & Rectal Surgery
PROC: 0DBL8ZX Excision of Transverse Colon, Via Natural or Artificial Opening Endoscopic, Diagnostic (ICD-10-PCS; 2021-12-10)
PROC: 0DBN8ZX Excision of Sigmoid Colon, Via Natural or Artificial Opening Endoscopic, Diagnostic (ICD-10-PCS; principal; 2021-12-10 08:30)
DX: D12.6 Benign neoplasm of colon, unspecified (principal); K63.89 Other specified diseases of intestine; K59.09 Other constipation; Z88.5 Allergy status to narcotic agent
CPT/HCPCS: 99153; G0500; J2250; J3010

== ENCOUNTER 2022-07-17 09:37 | Emergency (ER) | payer MEDICARE, OTHER ==
[~2022-07-17] VITALS: Ht 162.6 cm; Wt 59.0 kg
[~2022-07-17 09:37] MED LIST changes: +OMEPRAZOLE20 MG PO
== END 2022-07-17 12:20 | disposition home or self-care (01) ==
LOC: ED 09:37
DX: R09.89 Other specified symptoms and signs involving the circulatory and respiratory systems (principal); Z87.891 Personal history of nicotine dependence; Z91.013 Allergy to seafood; Z88.5 Allergy status to narcotic agent
CPT/HCPCS: 36415; 80053; 85025; 99283

== ENCOUNTER 2022-07-19 19:59 | Emergency (ER) | payer MEDICARE, OTHER ==
[~2022-07-19] VITALS: Ht 162.6 cm; Wt 59.0 kg
--- OUTSIDE RECORDS SUMMARY | 2022-07-19 20:06 | XMS ---
PreManage Notification: MITZY BARILLAS Security Official Greeter Events No recent Security Events currently on file CRITERIA MET - [facility] - 2 Visits in 30 Days CARE PROVIDERS Shankar Carr Wire Drawing Die Maker/Colliery Clerk 02/12/2022-Current PHONE: [phone] Js has no Care Guidelines for this patient. Conor VISIT COUNT (12 MO.) 2 [facility] TOTAL 2 NOTE: Visits indicate total known visits. ED/UCC VISIT TRACKING (12 MO.) 07/19/2022 20:00 [facility] [place] TYPE: Emergency COMPLAINT: - FEVER 07/17/2022 09:38 [facility] [place] TYPE: Emergency COMPLAINT: - CHOKING INPATIENT VISIT TRACKING (12 MO.) No inpatient visits to display in this time frame [id number]
--- NOTE | 2022-07-20 16:49 | EKG ---
[facility] [address] [facility] [place] [address] Signed Sinus bradycardia Right axis deviation Low voltage QRS Cannot rule out Anterior infarct , age undetermined Abnormal ECG When compared with ECG of 13-JUL-2021 07:46, Vent. rate has decreased BY 30 BPM QRS axis shifted right Confirmed by ABDI PHILLIP MD ([id number]) on 07/20/2022 4:48:43 PM Electronically Signed By: ABDI PHILLIP MD 07/20/22 1649 PATIENT NAME: MITZY BARILLAS Electrocardiogram DATE OF : 53 PHYSICIAN: ABDI PHILLIP MD REPORT #: [id number] REPORT IS CONFIDENTIAL AND NOT TO BE RELEASED WITHOUT AUTHORIZATION
== END 2022-07-19 22:44 | disposition home or self-care (01) ==
LOC: ED 19:59
DX: F03.90 Unspecified dementia, unspecified severity, without behavioral disturbance, psychotic disturbance, mood disturbance, and anxiety (principal); R41.0 Disorientation, unspecified; S39.012A Strain of muscle, fascia and tendon of lower back, initial encounter; X58.XXXA Exposure to other specified factors, initial encounter; Z87.891 Personal history of nicotine dependence; Z88.5 Allergy status to narcotic agent; Z91.013 Allergy to seafood; Z79.899 Other long term (current) drug therapy
CPT/HCPCS: 36415; 70450; 80053; 81001; 85025; 85610; 93005; 93010

== ENCOUNTER 2022-08-15 13:00 | Emergency (ER) | payer OTHER, MEDICARE ==
[~2022-08-15] VITALS: Ht 162.6 cm; Wt 59.0 kg
--- OUTSIDE RECORDS SUMMARY | 2022-08-15 13:06 | XMS ---
PreManage Notification: MITZY BARILLAS Security Filter Washer Events No recent Security Events currently on file CRITERIA MET - [facility] - 2 Visits in 30 Days CARE PROVIDERS Shankar Carr Machine Trimmer/Testing And Regulating Chief 02/12/2022-Current PHONE: [phone] Js has no Care Guidelines for this patient. Conor VISIT COUNT (12 MO.) 3 [facility] TOTAL 3 NOTE: Visits indicate total known visits. ED/C VISIT TRACKING (12 MO.) 08/15/2022 13:00 [facility] [place] TYPE: Emergency COMPLAINT: - FALL 07/19/2022 20:00 [facility] [place] TYPE: Emergency COMPLAINT: - FEVER DIAGNOSES: - Disorientation, unspecified - Personal history of nicotine dependence - Allergy to seafood - Other retirement (current) drug therapy - Unspecified dementia, unspecified severity, without behavioral disturbance, psychotic disturbance, mood disturbance, and anxiety - Exposure to other specified factors, initial encounter - Strain of muscle, fascia and tendon of lower back, initial encounter - Allergy status to narcotic agent 07/17/2022 09:38 [facility] [place] TYPE: Emergency COMPLAINT: - CHOKING DIAGNOSES: - Other specified symptoms and signs involving the circulatory and respiratory systems - Allergy to seafood - Personal history of nicotine dependence - Allergy status to narcotic agent INPATIENT VISIT TRACKING (12 MO.) No inpatient visits to display in this time frame [id number]
== END 2022-08-15 16:08 | disposition home or self-care (01) ==
LOC: ED 13:00
DX: S05.41XA Penetrating wound of orbit with or without foreign body, right eye, initial encounter (principal); Z87.891 Personal history of nicotine dependence; Z88.5 Allergy status to narcotic agent; Z91.013 Allergy to seafood; W01.0XXA Fall on same level from slipping, tripping and stumbling without subsequent striking against object, initial encounter
CPT/HCPCS: 70450; 99284-25

== ENCOUNTER 2022-08-19 21:09 | Emergency (ER) | payer OTHER, MEDICARE ==
[~2022-08-19] VITALS: Ht 162.6 cm; Wt 59.0 kg
--- OUTSIDE RECORDS SUMMARY | 2022-08-19 21:16 | XMS ---
PreManage Notification: MITZY BARILLAS Security Paring Machine Operator Events No recent Security Events currently on file CRITERIA MET - [facility] - 2 Visits in 30 Days CARE PROVIDERS Shankar Carr Auditor Supervisor/Diabetes Educator 02/12/2022-Current PHONE: [phone] Js has no Care Guidelines for this patient. Conor VISIT COUNT (12 MO.) 4 [facility] TOTAL 4 NOTE: Visits indicate total known visits. ED/C VISIT TRACKING (12 MO.) 08/19/2022 21:09 [facility] [place] TYPE: Emergency COMPLAINT: - FALL 08/15/2022 13:00 [facility] [place] TYPE: Emergency COMPLAINT: - FALL DIAGNOSES: - Allergy status to narcotic agent - Personal history of nicotine dependence - Penetrating wound of orbit with or without foreign body, right eye, initial encounter - Fall on same level from slipping, tripping and stumbling without subsequent striking against object, initial encounter - Allergy to seafood 07/19/2022 20:00 [facility] [place] TYPE: Emergency COMPLAINT: - FEVER DIAGNOSES: - Unspecified dementia, unspecified severity, without behavioral disturbance, psychotic disturbance, mood disturbance, and anxiety - Exposure to other specified factors, initial encounter - Strain of muscle, fascia and tendon of lower back, initial encounter - Allergy status to narcotic agent - Disorientation, unspecified - Personal history of nicotine dependence - Allergy to seafood - Other mcc (current) drug therapy 07/17/2022 09:[address] [facility] [place] TYPE: Emergency COMPLAINT: - CHOKING DIAGNOSES: - Personal history of nicotine dependence - Allergy status to narcotic agent - Other specified symptoms and signs involving the circulatory and respiratory systems - Allergy to seafood INPATIENT VISIT TRACKING (12 MO.) No inpatient visits to display in this time frame [id number]
== END 2022-08-20 00:07 | disposition home or self-care (01) ==
LOC: ED 21:09
DX: Z48.00 Encounter for change or removal of nonsurgical wound dressing (principal); Z87.891 Personal history of nicotine dependence; Z91.013 Allergy to seafood; Z88.5 Allergy status to narcotic agent; Z79.899 Other long term (current) drug therapy
CPT/HCPCS: 99283

== ENCOUNTER 2022-09-17 08:14 | Emergency (ER) | payer MEDICARE, OTHER ==
[~2022-09-17] VITALS: Ht 162.6 cm; Wt 59.0 kg
--- OUTSIDE RECORDS SUMMARY | 2022-09-17 08:22 | XMS ---
PreManage Notification: MITZY BARILLAS Security Flange Machine Operator Events No recent Security Events currently on file CRITERIA MET - [facility] - 2 Visits in 30 Days CARE PROVIDERS Shankar Carr Derrick Barge Operator/Automatic Print Developer 02/12/2022-Current PHONE: [phone] Js has no Care Guidelines for this patient. Conor VISIT COUNT (12 MO.) 5 [facility] TOTAL 5 NOTE: Visits indicate total known visits. ED/C VISIT TRACKING (12 MO.) 09/17/2022 08:15 [facility] [place] TYPE: Emergency COMPLAINT: - SEIZURE 08/19/2022 21:09 [facility] [place] TYPE: Emergency COMPLAINT: - FALL DIAGNOSES: - Allergy to seafood - Personal history of nicotine dependence - Allergy status to narcotic agent - Other buttermaker (current) drug therapy - Encounter for change or removal of nonsurgical wound dressing 08/15/2022 13:00 [facility] [place] TYPE: Emergency COMPLAINT: - FALL DIAGNOSES: - Fall on same level from slipping, tripping and stumbling without subsequent striking against object, initial encounter - Allergy to seafood - Allergy status to narcotic agent - Personal history of nicotine dependence - Penetrating wound of orbit with or without foreign body, right eye, initial encounter 07/19/2022 20:00 [facility] [place] TYPE: Emergency COMPLAINT: - FEVER DIAGNOSES: - Personal history of nicotine dependence - Allergy to seafood - Other snf (current) drug therapy - Unspecified dementia, unspecified severity, without behavioral disturbance, psychotic disturbance, mood disturbance, and anxiety - Exposure to other specified factors, initial encounter - Strain of muscle, fascia and tendon of lower back, initial encounter - Allergy status to narcotic agent - Disorientation, unspecified 07/17/2022 09:38 [facility] [place] TYPE: Emergency COMPLAINT: - CHOKING DIAGNOSES: - Allergy to seafood - Personal history of nicotine dependence - Allergy status to narcotic agent - Other specified symptoms and signs involving the circulatory and respiratory systems INPATIENT VISIT TRACKING (12 MO.) No inpatient visits to display in this time frame [id number]
[2022-09-17] MEDS ORDERED: ANASTROZOLE1 MG PO (08:29)
[2022-09-17] MEDS ORDERED: ACETAMINOPHEN500 MG PO (08:30)
[2022-09-17] MEDS ORDERED: OLANZAPINE7.5 MG PO (08:31)
[2022-09-17] MEDS ORDERED: MEMANTINE HCL10 MG PO (17:51)
[2022-09-17] MEDS ORDERED: OLANZAPINE15 MG PO (17:52)
== END 2022-09-17 10:15 | disposition home or self-care (01) ==
LOC: ED 08:14
DX: R56.9 Unspecified convulsions (principal); F03.90 Unspecified dementia, unspecified severity, without behavioral disturbance, psychotic disturbance, mood disturbance, and anxiety; Z87.891 Personal history of nicotine dependence; Z91.013 Allergy to seafood; Z88.5 Allergy status to narcotic agent; Z79.899 Other long term (current) drug therapy
CPT/HCPCS: 36415; 80053; 85025; 99284

== ENCOUNTER 2022-09-17 17:36 | Emergency (ER) | payer MEDICARE, OTHER ==
[~2022-09-17] VITALS: Ht 162.6 cm; Wt 59.0 kg
[~2022-09-17 17:36] MED LIST changes: +ACETAMINOPHEN500 MG PO; +ANASTROZOLE1 MG PO; +OLANZAPINE7.5 MG PO
--- OUTSIDE RECORDS SUMMARY | 2022-09-17 17:44 | XMS ---
PreManage Notification: MITZY BARILLAS Security Restorative Art Embalmer Events No recent Security Events currently on file CRITERIA MET - [facility] [place] [facility] - 2 Visits in 30 Days - 6 ED Visits in 6 Months CARE PROVIDERS Shankar Carr Net Developer/Accordion Tuner 02/12/2022-Current PHONE: [phone] Js has no Care Guidelines for this patient. Conor VISIT COUNT (12 MO.) 6 [facility] TOTAL 6 NOTE: Visits indicate total known visits. ED/C VISIT TRACKING (12 MO.) 09/17/2022 17:37 [facility] [place] TYPE: Emergency COMPLAINT: - ALTERED MENTAL STATUS 09/17/2022 08:15 [facility] [place] TYPE: Emergency COMPLAINT: - SEIZURE 08/19/2022 21:09 [facility] [place] TYPE: Emergency COMPLAINT: - FALL DIAGNOSES: - Allergy to seafood - Personal history of nicotine dependence - Allergy status to narcotic agent - Other halfway (current) drug therapy - Encounter for change [...] dependence - Allergy to seafood - Other halfway (current) drug therapy - Unspecified dementia, unspecified [...] visits to display in this time frame [id number]
[2022-09-17] MEDS ORDERED: MEMANTINE HCL10 MG PO (17:51)
[2022-09-17] MEDS ORDERED: OLANZAPINE15 MG PO (17:52)
== END 2022-09-17 18:33 | disposition home or self-care (01) ==
LOC: ED 17:36
DX: F03.90 Unspecified dementia, unspecified severity, without behavioral disturbance, psychotic disturbance, mood disturbance, and anxiety (principal); Z87.891 Personal history of nicotine dependence; Z91.013 Allergy to seafood; Z88.5 Allergy status to narcotic agent; Z79.899 Other long term (current) drug therapy
CPT/HCPCS: 99284

== ENCOUNTER 2022-11-13 04:50 | Emergency (ER) | payer MEDICARE, OTHER ==
[~2022-11-13] VITALS: Ht 162.6 cm; Wt 59.0 kg
[~2022-11-13 04:50] MED LIST changes: +MEMANTINE HCL10 MG PO; +OLANZAPINE15 MG PO
--- OUTSIDE RECORDS SUMMARY | 2022-11-13 04:59 | XMS ---
PreManage Notification: MITZY BARILLAS [employer] Events No recent Security Events currently on file CRITERIA MET - 6 ED Visits in 6 Months CARE PROVIDERS Shankar Carr Assistant Tennis Coach/Record Librarian 01/31/2022-Current PHONE: [phone] Js has no Care Guidelines for this patient. Conor VISIT COUNT (12 MO.) 7 [facility] TOTAL 7 NOTE: Visits indicate total known visits. ED/UCC VISIT TRACKING (12 MO.) 11/13/2022 04:51 [facility] TYPE: Emergency COMPLAINT: - POSS SEIZURES 09/17/2022 17:37 [facility] TYPE: Emergency COMPLAINT: - ALTERED MENTAL STATUS DIAGNOSES: - Allergy to seafood - Allergy status to narcotic agent - Other halfway (current) drug therapy - Altered mental status, unspecified - Unspecified dementia, unspecified severity, without behavioral disturbance, psychotic disturbance, mood disturbance, and anxiety - Personal history of nicotine dependence 09/17/2022 08:15 [facility] [place] TYPE: Emergency COMPLAINT: - SEIZURE DIAGNOSES: - Unspecified convulsions - Personal history of nicotine dependence - Allergy to seafood - Allergy status to narcotic agent - Unspecified dementia, unspecified severity, without behavioral disturbance, psychotic disturbance, mood disturbance, and anxiety - Other termite helper (current) drug therapy 08/19/2022 21:09 [facility] TYPE: Emergency COMPLAINT: - FALL DIAGNOSES: - Other halfway (current) drug therapy - Encounter for change or removal of nonsurgical wound dressing - Allergy to seafood - Personal history of nicotine dependence - Allergy status to narcotic agent 08/15/2022 13:00 [facility] [place] TYPE: Emergency COMPLAINT: - FALL DIAGNOSES: - Personal history of nicotine dependence - Penetrating wound of orbit with or without foreign body, right eye, initial encounter - Fall on same level from slipping, tripping and stumbling without subsequent striking against object, initial encounter - Allergy to seafood - Allergy status to narcotic agent 07/19/2022 20:00 [facility] [place] TYPE: Emergency COMPLAINT: - FEVER DIAGNOSES: - Allergy status to narcotic agent - Disorientation, unspecified - Personal history of nicotine dependence - Allergy to seafood - Other termite helper (current) drug therapy - Unspecified dementia, unspecified severity, without behavioral disturbance, psychotic disturbance, mood disturbance, and anxiety - Exposure to other specified factors, initial encounter - Strain of muscle, fascia and tendon of lower back, initial encounter 07/17/2022 09:[address] [facility] [place] TYPE: Emergency COMPLAINT: - CHOKING DIAGNOSES: - Allergy status to narcotic agent - Other specified symptoms and signs involving the circulatory and respiratory systems - Allergy to seafood - Personal history of nicotine dependence INPATIENT VISIT TRACKING (12 MO.) No inpatient visits to display in this time frame [id number]
== END 2022-11-13 05:45 | disposition home or self-care (01) ==
LOC: ED 04:50
DX: G40.909 Epilepsy, unspecified, not intractable, without status epilepticus (principal); Z51.5 Encounter for palliative care; Z85.3 Personal history of malignant neoplasm of breast; Z87.891 Personal history of nicotine dependence; Z91.013 Allergy to seafood; Z88.5 Allergy status to narcotic agent; Z79.899 Other long term (current) drug therapy
CPT/HCPCS: 99284

== ENCOUNTER 2022-11-27 17:11 | Emergency (ER) | payer MEDICARE, OTHER ==
[~2022-11-27] VITALS: Ht 162.6 cm; Wt 59.0 kg
--- OUTSIDE RECORDS SUMMARY | 2022-11-27 17:18 | XMS ---
PreManage Notification: MIZTY BARILLAS Security Customer Service Teller Events No recent Security Events currently on file CRITERIA MET - 6 ED Visits in 6 Months - [facility] - 2 Visits in 30 Days CARE PROVIDERS -[place]- Dentist: Medical Physics Researcher [facility] PHONE: [phone] Shankar Carr Dyed Raw Stock Blower Feeder/Bleach Chlorinator 01/31/2022-[facility] PHONE: [phone] sJ has no Care Guidelines for this patient. ESylvie VISIT COUNT (12 MO.) [address] [place] [address] TOTAL 8 NOTE: Visits indicate total known visits. ED/UCC VISIT TRACKING (12 MO.) 11/27/2022 17:[address] [facility] [place] TYPE: Emergency COMPLAINT: - GROUND LEVEL FALL 11/13/2022 04:[address] [facility] [place] TYPE: Emergency COMPLAINT: - POSS SEIZURES DIAGNOSES: - Allergy status to narcotic agent - Personal history of nicotine dependence - Personal history of malignant neoplasm of breast - Other prison (current) drug therapy - Epilepsy, unspecified, not intractable, without status epilepticus - Encounter for palliative care - Allergy to seafood 09/17/2022 17:37 [facility] TYPE: Emergency COMPLAINT: - ALTERED MENTAL STATUS DIAGNOSES: - Other long term care pharmacist (current) drug therapy - Altered mental status, unspecified - Unspecified dementia, unspecified severity, without behavioral disturbance, psychotic disturbance, mood disturbance, and anxiety - Personal history of nicotine dependence - Allergy to seafood - Allergy status to narcotic agent 09/17/2022 08:15 [facility] TYPE: Emergency COMPLAINT: - SEIZURE DIAGNOSES: - Allergy to seafood - Allergy status to narcotic agent - Unspecified dementia, unspecified severity, without behavioral disturbance, psychotic disturbance, mood disturbance, and anxiety - Other prison (current) drug therapy - Unspecified convulsions - Personal history of nicotine dependence 08/19/2022 21:09 [facility] TYPE: Emergency COMPLAINT: - FALL DIAGNOSES: - Allergy to seafood - Personal history of nicotine dependence - Allergy status to narcotic agent - Other prison (current) drug therapy - Encounter for change [...] Emergency COMPLAINT: - FEVER DIAGNOSES: - Allergy to seafood - Other prison (current) drug therapy - Unspecified dementia, unspecified severity, without behavioral disturbance, psychotic disturbance, mood disturbance, and anxiety - Exposure to other specified factors, initial encounter - Strain of muscle, fascia and tendon of lower back, initial encounter - Allergy status to narcotic agent - Disorientation, unspecified - Personal history of nicotine dependence 07/17/2022 09:38 [facility] [place] TYPE: Emergency COMPLAINT: - CHOKING DIAGNOSES: - Allergy to seafood - Personal history of nicotine dependence - Allergy status to narcotic agent - Other specified symptoms and signs involving the circulatory and respiratory systems INPATIENT VISIT TRACKING (12 MO.) No inpatient visits to display in this time frame [id number]
== END 2022-11-27 20:08 ==
LOC: ED 17:11
DX: S00.03XA Contusion of scalp, initial encounter (principal); W18.30XA Fall on same level, unspecified, initial encounter; Z85.3 Personal history of malignant neoplasm of breast; Z87.891 Personal history of nicotine dependence; Z79.899 Other long term (current) drug therapy; Z88.5 Allergy status to narcotic agent; Z91.013 Allergy to seafood
CPT/HCPCS: 70450; 72125; 99284-25